=== PATIENT | female | born 1945 | race Caucasian/White ===

== ENCOUNTER → 2018-06-29 | Outpatient (CLI) | payer MEDICARE, BC | LOC: M.RAD 14:30 | DX: Z12.31 Encounter for screening mammogram for malignant neoplasm of breast (principal); Z78.0 Asymptomatic menopausal state; N91.2 Amenorrhea, unspecified ==

== ENCOUNTER → 2019-07-15 | Outpatient (CLI) | payer OTHER | LOC: M.CT 07:55 | DX: Z13.6 Encounter for screening for cardiovascular disorders (principal) ==